=== PATIENT | female | born 1945 | race Caucasian/White ===

== ENCOUNTER → 2017-04-10 | Outpatient (CLI) | payer MEDICARE, BC ==
[~2017-04-10] MED LIST: ASPIRIN 32325 MG/TAB PO; CRESTOR 10MG10 MG PO; FISH OIL500 MG PO; GLUCOPHAGE500 MG/TAB PO; HCTZ12.5TAB PO; MULTIPLE VITAMI1 CAP PO; NORCO 325 MG-7.1 TAB PO; ROXICODONE 55 MG/TAB PO; TOPROL XL 25MG25 MG PO
== END ==
LOC: MC.RAD 13:10
DX: Z12.31 Encounter for screening mammogram for malignant neoplasm of breast (principal)

== ENCOUNTER 2017-04-23 11:07 | Outpatient (RCR) | payer MEDICARE, BC | END 2017-07-22 | LOC: MKS.ESL.PT | DX: R26.89 Other abnormalities of gait and mobility (principal); Z91.81 History of falling | CPT/HCPCS: G8978-GP; G8979-GP ==

== ENCOUNTER → 2018-05-26 | Outpatient (CLI) | payer MEDICARE, BC | LOC: MC.RAD 09:37 | DX: Z12.31 Encounter for screening mammogram for malignant neoplasm of breast (principal) ==

== ENCOUNTER 2018-07-03 09:48 | Emergency (ER) | payer MEDICARE, BC ==
[~2018-07-03] VITALS: Ht 167.6 cm; Wt 79.5 kg
[2018-07-03 09:52] VITALS: TEMP 97.7
[2018-07-03] MEDS ORDERED: TOPROL XL100 MG (10:16)
[2018-07-03] MEDS ORDERED: ALTACE 10MG TAB10 MG (10:16)
[2018-07-03] MEDS ORDERED: LIPITOR20 MG (10:17)
[2018-07-03] MEDS ORDERED: ASPIRIN 81M81 MG/TA2 (10:17)
[2018-07-03] MEDS ORDERED: HYGROTON 2525 MG/TAB (10:17)
[2018-07-03] MEDS ORDERED: NORCO 325 MG-51 TAB PO (11:57)
[2018-07-03 12:16] VITALS: BP 138/76; PULSE 82
== END 2018-07-03 12:25 | disposition home or self-care (01) ==
LOC: COL.ER 09:48
DX: S50.02XA Contusion of left elbow, initial encounter (principal); S50.812A Abrasion of left forearm, initial encounter; I10 Essential (primary) hypertension; E11.9 Type 2 diabetes mellitus without complications; F17.210 Nicotine dependence, cigarettes, uncomplicated; M85.80 Other specified disorders of bone density and structure, unspecified site; Z79.82 Long term (current) use of aspirin; W18.31XA Fall on same level due to stepping on an object, initial encounter; Y92.009 Unspecified place in unspecified non-institutional (private) residence as the place of occurrence of the external cause
CPT/HCPCS: Q4050

== ENCOUNTER 2019-05-28 13:44 | Outpatient (CLI) | payer MEDICARE, BC ==
[~2019-05-28] VITALS: Ht 167.6 cm; Wt 83.7 kg
[~2019-05-28 13:44] MED LIST changes: +ALTACE 10MG TAB10 MG; +ASPIRIN 81M81 MG/TA2; +HYGROTON 2525 MG/TAB; +LIPITOR20 MG; +NORCO 325 MG-51 TAB PO; +TOPROL XL100 MG
[2019-05-28 14:26] VITALS: BP 140/63; PULSE 93; TEMP 97.6
== END 2019-05-28 14:34 | disposition home or self-care (01) ==
LOC: EUO 13:44
DX: M81.0 Age-related osteoporosis without current pathological fracture (principal)
CPT/HCPCS: J0897

== ENCOUNTER → 2019-06-04 | Outpatient (CLI) | payer MEDICARE, BC | LOC: MC.RAD 13:00 | DX: Z12.31 Encounter for screening mammogram for malignant neoplasm of breast (principal) ==

== ENCOUNTER 2019-09-01 13:57 | Outpatient (CLI) | payer MEDICARE, BC ==
[~2019-09-01] VITALS: Ht 167.6 cm; Wt 83.4 kg
[2019-09-01 14:25] VITALS: BP 156/75; PULSE 99; TEMP 98.6
== END 2019-09-01 14:55 | disposition home or self-care (01) ==
LOC: EUO 13:57
DX: M81.0 Age-related osteoporosis without current pathological fracture (principal)
CPT/HCPCS: J0897

== ENCOUNTER 2020-03-22 13:55 | Outpatient (CLI) | payer MEDICARE, BC ==
[~2020-03-22] VITALS: Ht 167.6 cm; Wt 82.8 kg
[2020-03-22] MEDS ORDERED: CALCIUM CARBON650 M2 PO (14:16)
[2020-03-22 14:22] VITALS: BP 106/67; PULSE 86; TEMP 98.8
== END 2020-03-22 14:30 | disposition home or self-care (01) ==
LOC: EUO 13:55
DX: M81.0 Age-related osteoporosis without current pathological fracture (principal)
CPT/HCPCS: J0897

== ENCOUNTER → 2020-06-21 | Outpatient (CLI) | payer MEDICARE, BC ==
[~2020-06-21] MED LIST changes: -ALTACE 10MG TAB10 MG; +ALTACE 10MG TAB10 MG PO; -ASPIRIN 81M81 MG/TA2; +ASPIRIN 81M81 MG/TA2 PO; +CALCIUM 600MG+D1 TAB PO; +CALCIUM CARBON650 M2 PO; +GLUCOPHAGE1000 MG PO; -GLUCOPHAGE500 MG/TAB PO; -HYGROTON 2525 MG/TAB; +HYGROTON 2525 MG/TAB PO; -LIPITOR20 MG; +LIPITOR20 MG PO; -TOPROL XL100 MG; +TOPROL XL100 MG PO
== END ==
LOC: MC.RAD 14:12
DX: Z12.31 Encounter for screening mammogram for malignant neoplasm of breast (principal)

== ENCOUNTER 2020-09-19 15:07 | Outpatient (CLI) | payer MEDICARE, BC ==
[~2020-09-19] VITALS: Ht 167.6 cm; Wt 80.3 kg
[~2020-09-19 15:07] MED LIST changes: -CALCIUM 600MG+D1 TAB PO
[2020-09-19] MEDS ORDERED: CALCIUM 600MG+D1 TAB PO (15:40)
[2020-09-19 15:44] VITALS: BP 135/65; PULSE 85; TEMP 98.8
== END 2020-09-19 15:55 | disposition home or self-care (01) ==
LOC: EUO 15:07
DX: M81.0 Age-related osteoporosis without current pathological fracture (principal)
CPT/HCPCS: J0897

== ENCOUNTER → 2020-11-22 | Outpatient (CLI) | payer MEDICARE, BC ==
[~2020-11-22] MED LIST changes: +CALCIUM 600MG+D1 TAB PO
== END ==
LOC: COL.VAS 07:33
DX: M79.661 Pain in right lower leg (principal); M79.89 Other specified soft tissue disorders

== ENCOUNTER 2021-03-21 14:45 | Outpatient (CLI) | payer MEDICARE, BC ==
[~2021-03-21] VITALS: Ht 167.6 cm; Wt 80.3 kg
[2021-03-21 15:14] VITALS: BP 132/75; PULSE 88; TEMP 98.2
== END 2021-03-21 16:40 | disposition home or self-care (01) ==
LOC: EUO 14:45
DX: M81.0 Age-related osteoporosis without current pathological fracture (principal)
CPT/HCPCS: J0897

== ENCOUNTER → 2021-06-06 | Outpatient (CLI) | payer MEDICARE, BC | LOC: COL.RAD 14:16 | DX: Z12.2 Encounter for screening for malignant neoplasm of respiratory organs (principal); F17.218 Nicotine dependence, cigarettes, with other nicotine-induced disorders ==

== ENCOUNTER 2021-08-19 15:48 | Emergency (ER) | payer MEDICARE, BC ==
[~2021-08-19] VITALS: Ht 167.6 cm; Wt 77.3 kg
[2021-08-19 15:57] VITALS: TEMP 98
[2021-08-19] MEDS ORDERED: PERCOCET 325 MG1 TA2 PO (17:22)
[2021-08-19 17:42] VITALS: BP 129/73; PULSE 89
== END 2021-08-19 17:47 | disposition home or self-care (01) ==
LOC: COL.ER 15:48
DX: S42.202A Unspecified fracture of upper end of left humerus, initial encounter for closed fracture (principal); F17.210 Nicotine dependence, cigarettes, uncomplicated; Z79.82 Long term (current) use of aspirin; W18.30XA Fall on same level, unspecified, initial encounter; Y92.096 Garden or yard of other non-institutional residence as the place of occurrence of the external cause; Y99.0 Civilian activity done for income or pay
CPT/HCPCS: J1170; J3010

== ENCOUNTER 2021-09-20 13:58 | Outpatient (CLI) | payer MEDICARE, BC ==
[~2021-09-20] VITALS: Ht 167.6 cm; Wt 79.9 kg
[~2021-09-20 13:58] MED LIST changes: +PERCOCET 325 MG1 TA2 PO
[2021-09-20 14:38] VITALS: BP 135/76; PULSE 81; TEMP 98.2
== END 2021-09-20 14:41 ==
LOC: EUO 13:58
DX: M81.0 Age-related osteoporosis without current pathological fracture (principal)
CPT/HCPCS: J0897

== ENCOUNTER 2023-04-16 14:37 | Outpatient (CLI) | payer MEDICARE, BC ==
[~2023-04-16 14:37] MED LIST changes: +COLLAGEN 15001 EACH PO; +FISH OIL 500 M1 EAC1 PO; -FISH OIL500 MG PO; -MULTIPLE VITAMI1 CAP PO; +MULTIPLE VITAMI1 TA5 PO
[2023-04-16 14:55] VITALS: BP 136/63; PULSE 89; TEMP 98.2
== END 2023-04-16 15:22 ==
LOC: EUO 14:37
DX: M81.0 Age-related osteoporosis without current pathological fracture (principal)
CPT/HCPCS: J0897

== ENCOUNTER → 2023-06-10 | Outpatient (CLI) | payer MEDICARE, BC | LOC: COL.RAD 10:13 | DX: Z12.2 Encounter for screening for malignant neoplasm of respiratory organs (principal); F17.219 Nicotine dependence, cigarettes, with unspecified nicotine-induced disorders ==